=== PATIENT | female | born 1975 | race Caucasian/White ===

== ENCOUNTER 2023-02-17 20:16 | Emergency (ER) | payer OTHER ==
[~2023-02-17] VITALS: Ht 162.6 cm; Wt 78.0 kg
[2023-02-17 21:13] VITALS: BP 179/73; TEMP 97.8; O2SAT 100
[2023-02-17] MEDS ORDERED: AZIT250T13 PO (22:47)
== END 2023-02-17 22:59 | disposition home or self-care (01) ==
LOC: ER 20:19
DX: J20.9 Acute bronchitis, unspecified (principal); Z20.822 Contact with and (suspected) exposure to COVID-19; Z98.890 Other specified postprocedural states; Z88.0 Allergy status to penicillin; Z88.1 Allergy status to other antibiotic agents
CPT/HCPCS: 99283; 87426; 87804 ×2; C9803